=== PATIENT | female | born 1945 | race Caucasian/White ===

== ENCOUNTER → 2022-06-14 | Outpatient (REF) | payer OTHER | LOC: M LAB REF 16:19 | PROVIDERS: ATTEND Ophthalmology | DX: C44.1192 Basal cell carcinoma of skin of left lower eyelid, including canthus (principal) ==

== ENCOUNTER → 2023-04-10 | Outpatient (CLI) | payer MEDICARE | LOC: M RAD 07:46 | PROVIDERS: ATTEND Internal Medicine | DX: R74.01 Elevation of levels of liver transaminase levels (principal); K76.89 Other specified diseases of liver ==